=== PATIENT | female | born 1995 | race African-American/Black ===

== ENCOUNTER 2021-02-01 19:22 | Emergency (ER) | payer SELFPAY ==
[2021-02-01 19:58] VITALS: TEMP 98.2; BMI 31.6
[2021-02-01] MEDS ORDERED: morphine CARPU-JECT 4 MG/1 ML DISP.SYRIN IVPUSH ONE (20:38)
[2021-02-01] MEDS ORDERED: morphine SULFATE 4 MG/ML VIAL ONE (20:41)
[2021-02-01] MEDS ORDERED: PROPOFOL 0 ML ONE (22:12)
[2021-02-01] MEDS ORDERED: MIDAZOLAM HCL 5 MG/1 ML Single Dose Vial IVPUSH ONE (22:24)
[2021-02-01] MEDS ORDERED: MIDAZOLAM HCL 2 MG/2 ML SINGLE DOSE VIAL ONE (22:25)
[2021-02-01 23:07] VITALS: BP 119/56; PULSE 89
== END 2021-02-01 23:07 | disposition home or self-care (01) ==
LOC: JER 19:22
PROC: 3E033NZ Introduction of Analgesics, Hypnotics, Sedatives into Peripheral Vein, Percutaneous Approach (ICD-10-PCS; principal; 2021-02-01)
DX: S43.005A Unspecified dislocation of left shoulder joint, initial encounter (principal)
CPT/HCPCS: 73030-TC-RT-FY; 99284-25

== ENCOUNTER 2022-03-16 03:11 | Emergency (ER) | payer BC, OTHER ==
[2022-03-16 03:39] VITALS: BP 112/71; PULSE 92; TEMP 97.7; BMI 29.9
== END 2022-03-16 05:49 | disposition home or self-care (01) ==
LOC: JER 03:11
DX: S09.90XA Unspecified injury of head, initial encounter (principal); W22.8XXA Striking against or struck by other objects, initial encounter; Y00.XXXA Assault by blunt object, initial encounter
CPT/HCPCS: 70450-TC; 72125-TC; 99284-25

== ENCOUNTER 2022-09-15 23:21 | Emergency (ER) | payer OTHER ==
[2022-09-15 23:39] VITALS: BP 132/82; PULSE 84; RESP 18; TEMP 99.8; BMI 31.8
== END 2022-09-16 00:45 | disposition home or self-care (01) ==
LOC: JER 23:21
DX: U07.1 COVID-19 (principal)
CPT/HCPCS: 0241U-QW; 99283-25